=== PATIENT | female | born 1975 ===

== ENCOUNTER 2025-05-24 12:45 | Inpatient (IN) | payer OTHER ==
[~2025-05-24] VITALS: Ht 157.5 cm; Wt 54.4 kg
[2025-05-24] MEDS ORDERED: CRESTOR40 MG (13:54)
[2025-05-24] MEDS ORDERED: PRILOSEC OTC20 MG (13:55)
[2025-05-24 13:59] VITALS: BP 110/74
[2025-05-24 14:33] LABS: COVID-19 AG NEGATIVE (NEGATIVE)
[2025-05-24 15:30] LABS: RH POSITIVE
[2025-05-31] MEDS ORDERED: POVIDONE-IODINE 118 ML BOTT TOP ONE (08:50)
[2025-05-31] MEDS ORDERED: CEFAZOLIN SODIUM 1,000 MG VIAL IV ONE (09:15)
[2025-05-31] MEDS ORDERED: METRONIDAZOLE/SODIUM CHLORIDE 500 MG/100 ML PIGGYBACK IV ONE (09:15)
[2025-05-31] MEDS ORDERED: HEMOSTATIC MATRIX 1 KIT KIT TOP ONE (10:45)
[2025-05-31] MEDS ORDERED: SUGAMMADEX SODIUM 200 MG/2 ML VIAL IV ONE (10:46)
[2025-05-31] MEDS ORDERED: OxyCODONE HCL 5 MG TABLET (ROXICODONE) PO PRN (11:15)
[2025-05-31] MEDS ORDERED: ONDANSETRON HCL 2 MG/ML VIAL IV PRN (11:15)
[2025-05-31] MEDS ORDERED: RINGERS SOLUTION,LACTATED 1,000 ML IV SCH (11:15)
[2025-05-31] MEDS ORDERED: MORPHINE SULFATE 4 MG/ML CARTRIDGE IV PRN (11:15)
[2025-05-31] MEDS ORDERED: ONDANSETRON HCL 2 MG/ML VIAL ONE (11:46)
[2025-05-31] MEDS ORDERED: MORPHINE SULFATE 4 MG/ML VIAL IV ONE ×2 (11:50→14:00)
[2025-05-31] MEDS ORDERED: KETOROLAC TROMETHAMINE 30 MG VIAL IV ONE (12:00)
[2025-05-31] MEDS ORDERED: KETOROLAC TROMETHAMINE 30 MG VIAL IM SCH (12:00)
[2025-05-31] MEDS ORDERED: KETOROLAC TROMETHAMINE 30 MG VIAL ONE (12:11)
[2025-05-31 14:00] LABS: BASO % 0.1 % (0.1-1.2); EOS # 0.00 (0.04-0.54); EOS % 0.0 % (0.7-7.0); LYMPH # 1.46 (1.18-3.74); LYMPH % 8.4 % (19.3-53.1); MEAN PLATELET VOLUME 10.60 fl (9.4-12.4); MONO # 1.19 (0.24-0.82); MONO % 6.8 % (4.7-12.5); NEUT # 14.73 (1.56-6.13); NEUT % 84.4 % (34.0-71.1); RED CELL DISTRIBUTION WIDTH 13.8 % (11.6-14.4)
[2025-05-31 14:52] LABS: BUN CREA RATIO 9.0 (7.0-25.0); CREATININE SERUM 0.65 mg/dL (0.55-1.02); GFR 97.28; GLUCOSE FASTING 115.0 mg/dL (65-100); OSMOLALITY SERUM 274.0 MOSM/KG (275-295)
[2025-05-31 16:00] VITALS: BP 147/75; O2SAT 97
[2025-05-31] MEDS ORDERED: CEFAZOLIN SODIUM 1,000 MG VIAL IV SCH (17:00)
[2025-05-31] MEDS ORDERED: GABAPENTIN 300 MG CAPSULE PO SCH (17:00)
[2025-05-31] MEDS ORDERED: SIMETHICONE 125 MG CAPSULE PO SCH (17:00)
[2025-05-31 20:00] VITALS: BP 134/74
[2025-05-31] MEDS ORDERED: FAMOTIDINE/PF 20 MG/2 ML VIAL IV PUSH SCH (21:00)
[2025-06-01] VITALS: BP 126/72; O2SAT 97
[2025-06-01 08:13] LABS: BUN CREA RATIO 8.0 (7.0-25.0); CREATININE SERUM 0.73 mg/dL (0.55-1.02); GFR 85.09; GLUCOSE FASTING 126.0 mg/dL (65-100); OSMOLALITY SERUM 269.0 MOSM/KG (275-295)
[2025-06-01 08:27] LABS: BASO % 0.2 % (0.1-1.2); EOS # 0.03 (0.04-0.54); EOS % 0.2 % (0.7-7.0); LYMPH # 2.69 (1.18-3.74); LYMPH % 21.8 % (19.3-53.1); MEAN PLATELET VOLUME 10.60 fl (9.4-12.4); MONO # 1.30 (0.24-0.82); MONO % 10.5 % (4.7-12.5); NEUT # 8.25 (1.56-6.13); NEUT % 67.0 % (34.0-71.1); RED CELL DISTRIBUTION WIDTH 13.5 % (11.6-14.4)
[2025-06-01 08:29] VITALS: BP 128/77; O2SAT 98
[2025-06-01] MEDS ORDERED: ENOXAPARIN SODIUM 40 MG/0.4 ML SYRINGE SUBCUTANEO SCH (09:00)
[2025-06-01 16:05] VITALS: BP 113/71; O2SAT 99
[2025-06-01] MEDS ORDERED: DOCUSATE SODIUM 100MG CAP PO SCH (17:00)
[2025-06-01 23:58] VITALS: BP 140/80; O2SAT 97
[2025-06-02 08:00] VITALS: BP 125/80; O2SAT 99
== END 2025-06-02 12:00 | disposition home or self-care (01) | DRG 743 ==
LOC: OB/GYN 05-31 05:18 → O/R 05-31 05:18 → OB/GYN 05-31 07:58 → SURH 05-31 10:45 → OB/GYN 06-02 12:00
PROVIDERS: ADMIT Obstetrics & Gynecology Gynecologic Oncology; ATTEND Obstetrics & Gynecology Gynecologic Oncology
PROC: 0UT70ZZ Resection of Bilateral Fallopian Tubes, Open Approach (ICD-10-PCS; 2025-05-31)
PROC: 0UT90ZZ Resection of Uterus, Open Approach (ICD-10-PCS; principal; 2025-05-31 10:45)
DX: D25.1 Intramural leiomyoma of uterus (principal)